=== PATIENT | female | born 2000 | race Caucasian/White ===

== ENCOUNTER 2025-04-02 12:35 | Emergency (ER) | payer OTHER ==
[2025-04-02 13:31] LABS: ALANINE AMINOTRANSFERASE,ALT 112 U/L (12-78); ASPARTATE AMNIOTRANSFERASE,AST 51 U/L (15-37); BILIRUBIN TOTAL 0.4 mg/dL (0.2-1.0); BLOOD UREA NITROGEN,BUN 6 mg/dL (7-18); CARBON DIOXIDE,CO2 27.2 mmol/L (21.0-32.0); CHLORIDE,CL 107 mmol/L (98-107); CREATININE 0.77 mg/dL (0.51-1.17); GLUCOSE RANDOM 99 mg/dL (70-99); POTASSIUM,K 3.7 mmol/L (3.5-5.1); PROTEIN TOTAL,TP 7.3 g/dL (6.4-8.2); SODIUM,NA 143 mmol/L (136-145)
[2025-04-02 13:32] LABS: ESTIMATED GFR 110 mL/min (>=60)
[2025-04-02] MEDS ORDERED: Sodium Chloride 0.9% 10 ML Syringe FLUSH PRN (13:38)
[2025-04-02 13:49] LABS: BASOPHILS ABSOLUTE AUTO 0.02 K/uL (0.00-0.20); BASOPHILS PERCENT AUTO 0.4 % (0.0-2.0); EOSINOPHILS ABSOLUTE AUTO 0.04 K/uL (0.00-0.50); EOSINOPHILS PERCENT AUTO 0.7 % (0.0-5.0); IMMATURE GRAN ABSOLUTE AUTO 0.01 10^3/uL (0.00-0.04); IMMATURE GRAN PERCENT AUTO 0.2 % (0.0-0.4); LYMPHOCYTES ABSOLUTE AUTO 1.73 K/uL (0.50-3.50); LYMPHOCYTES PERCENT AUTO 30.7 % (10.0-50.0); MONOCYTES ABSOLUTE AUTO 0.47 K/uL (0.00-1.00); MONOCYTES PERCENT AUTO 8.3 % (2.0-14.0); NEUTROPHILS ABSOLUTE AUTO 3.36 K/uL (1.40-7.00); NEUTROPHILS PERCENT AUTO 59.7 % (45.0-80.0); PLATELET COUNT,PLT 219 K/uL (150-350); RED BLOOD CELL COUNT 4.15 M/uL (3.77-5.09); RED CELL DISTRIBUTION WIDTH 11.4 % (11.2-14.1); WHITE BLOOD CELL COUNT,WBC 5.6 K/uL (4.0-10.2)
[2025-04-02] MEDS ORDERED: Naloxone 0.4 MG/ML SDV IVPUSH PRN (13:54)
[2025-04-02 15:05] LABS: APPEARANCE,URINE CLEAR; GLUCOSE,URINE NEGATIVE (NEGATIVE); OCCULT BLOOD,URINE NEGATIVE (NEGATIVE)
== END 2025-04-02 16:02 | disposition home or self-care (01) ==
LOC: LL.ED 12:35
DX: R10.31 Right lower quadrant pain (principal)
CPT/HCPCS: 36415; 74018; 76705; 76857; 80053; 81003; 81025; 83690; 85025; 96361; 96374; 99284-25; J1171; J7030